=== PATIENT | female | born 1955 | race Caucasian/White ===

== ENCOUNTER 2016-07-16 23:31 | Observation (INO) ==
--- NOTE | 2016-07-16 23:55 | Emergency Department Note ---
Disposition Clinical Impression: Chest pain of unknown etiology Disposition: Admitted As Inpatient Condition: Fair Referrals: Unassigned,Provider [Non-Partnered Physician] - Forms: ED Satisfaction Letter Chest Pain HPI - General Chief Complaint: ED Chest Pain Stated Complaint: chest pains,left arm pain Time Seen by Provider: 07/16/16 23:40 Source: patient Limitations: no limitations Vital Signs Reviewed: Yes Nursing Notes Reviewed: Yes - History of Present Illness HPI Narrative: History of present illness: Patient is a 60-year-old female complains of chest pressure that started 3 days ago while at rest. No prior cardiac history for DE or arrhythmias. He had chest pressure symptoms 10 years ago with stress tests which was unremarkable. Patient states pressure deep within her chest 8 out of 10 constant. Nothing makes it better nothing makes it worse. Patient tried taking a laxative as she thought maybe it was constipation. Patient having normal bowel movements and no change in symptoms in her chest. Patient denies diabetes, hypertension, hyperlipidemia, history of clotting, Tobacco, alcohol or illicit drug use. Severity scale (1-10): 8 - Related Data Previous Rx's Medication Instructions Recorded Naproxen [Naprosyn] 500 mg PO BID #10 tablet 06/07/15 PredniSONE 20 mg PO DAILY #3 tablet 06/07/15 Allergies Allergy/AdvReac Type Severity Reaction Status Date / Time acetaminophen [From Percocet] Allergy Vomiting Verified 07/16/16 23:35 Oxycodone [From Percocet] Allergy Vomiting Verified 07/16/16 23:35 All systems ED: reviewed and negative except as stated. Constitutional: Denies: fever, chills, weakness Eyes: Denies: vision change ENT ED: Denies: throat pain, congestion, dysphagia Cardiovascular: Reports: chest pain. Denies: palpitations, syncope Respiratory: Denies: cough, dyspnea, wheezes, sputum production Gastrointestinal: Reports: diarrhea. Denies: abdominal pain, nausea, vomiting, constipation, hematemesis, melena, hematochezia Genitourinary: Denies: urgency, dysuria, frequency, hematuria Chest Pain PMH - Past Medical History Medical history: Reports: no medical history Surgical history: Reports: cholecystectomy Psychiatric history: Reports: no psych history - Social History Smoking Status: Never smoker Alcohol use: Reports: none Drug use: Reports: none Physical Exam - General Limitations: no limitations General appearance: alert - Head Head exam: atraumatic, normocephalic, normal inspection - Eye Eye exam: Present: normal appearance, PERRL, EOMI. Absent: scleral icterus, conjunctival injection, nystagmus - ENT ENT exam: normal exam, normal oropharynx, mucous membranes moist - Neck Neck exam: Present: normal inspection, full ROM, trachea midline. Absent: tenderness, meningismus, lymphadenopathy - Chest Chest inspection: Present: normal inspection, symmetric chest wall rise. Absent : tenderness - Respiratory Respiratory exam: Present: normal lung sounds bilaterally. Absent: respiratory distress, wheezes - Cardiovascular Cardiovascular exam: Present: regular rate, normal rhythm - Abdominal Exam Abdominal exam: Present: soft, Non-Tender - Back Exam Back exam: Present: normal inspection, full ROM. Absent: tenderness, CVA tenderness (R), CVA tenderness (L) - Neurological Exam Neurological exam: Present: alert, oriented X3, CN II-XII intact - Psychiatric Psychiatric exam: Present: normal affect, normal mood - Skin Skin exam: Present: warm, dry, intact, normal color Course - Reevaluation(s) Reevaluation #1: Assessment: ACS/DE, PE, pneumothorax, aortic dissection Plan: CBC, BMP, troponin, EKG, chest x-ray, aspirin Time: 23:38 Reevaluation #2: Patient is received aspirin, nitroglycerin 2, IV normal saline. Patient reports no change in pain or pressure Time: 01:15 Reevaluation #3: Patient received GI cocktail still no resolution to pain symptoms. Unsure was causing the pain right now/pressure but is concerning. Patient agrees to CTA of her chest. In administer IV fluids and 0.5 Dilaudid for pain Time: 01:49 Additional Reevaluation(s): Patient states that she still has chest pressure. Administer 1 mg of Dilaudid There is difficulty obtaining CTA of chest. Patient's IV line infiltrated and was unable to get the study. Patient is low risk for pulmonary embolism and has no shortness of breath or tachycardia, but we could not find any other reason for patient's chest pressure. Will continue with admission and advised later reattempt for CTA if necessary. - Consultations Consultation #1: Dr. Encarnacion has accepted for admission Time: 04:32 Vital Signs Temperature 98.3 F 07/16/16 23:32 Pulse Rate 95 07/16/16 23:32 Respiratory Rate 16 07/16/16 23:32 Blood Pressure 153/62 07/16/16 23:32 O2 Sat by Pulse Oximetry 95 07/16/16 23:32 Temperature 98.3 F 07/16/16 23:32 Pulse Rate 99 07/17/16 00:31 Respiratory Rate 18 07/17/16 00:31 Blood Pressure 147/77 07/17/16 00:31 O2 Sat by Pulse Oximetry 93 07/17/16 00:31 Oxygen Delivery Oxygen Delivery Room Air Chest Pain - Lab Data Lab results reviewed: Yes I reviewed the patient's lab results. Lab results narrative: Short CBC 07/17/16 Range/Units 00:02 WBC 10.9 (4.3-11.1) K/mcL Hgb 13.2 (11.5-15.4) g/dL Hct 40.0 (35.3-44.9) % Plt Count 327 (140-400) K/mcL Neutrophils # 7.1 (1.6-8.9) K/mcL BMP 07/17/16 Range/Units 00:02 Sodium 141 (136-145) mEq/L Potassium 3.7 (3.5-4.5) mEq/L Chloride 110 H (98-109) mEq/L Carbon Dioxide 22 (19-29) mEq/L BUN 22 H (7-20) mg/dL Creatinine 0.79 (0.57-1.11) mg/dL Glucose 93 (70-99) mg/dL Calcium 9.0 (8.6-10.8) mg/dL Cardiac Enzymes 07/17/16 Range/Units 00:02 Troponin I 0.00 (0-0.03) ng/mL Liver Function 07/17/16 Range/Units 00:02 Total Bilirubin 0.5 (0.2-1.2) mg/dL Direct Bilirubin 0.2 (0.0-0.5) mg/dL AST 22 (5-34) Units/L ALT 30 (0-55) Units/L Alkaline Phosphatase 82 (38-126) Units/L Albumin 4.1 (3.5-5.0) g/dL Result diagrams: 07/17/16 00:02 07/17/16 00:02 Lab Results 07/17/16 07/17/16 07/17/16 Range/Units 00:02 00:02 00:02 WBC 10.9 (4.3-11.1) K/mcL RBC 4.67 (3.82-4.97) M/mcL Hgb 13.2 (11.5-15.4) g/dL Hct 40.0 (35.3-44.9) % MCV 85.7 (83.0-100.0) fL MCH 28.3 (28.0-33.3) pg MCHC 33.0 (31.6-35.5) g/dL RDW 12.5 (11.5-14.5) % Plt Count 327 (140-400) K/mcL MPV 10.2 (9.4-12.4) fL Immature Gran % 0.5 (0-4) % Seg Neutrophils % 65.0 % Lymphocytes % 23.8 % Monocytes % 8.5 % Eosinophils % 1.8 % Basophils % 0.4 % Neutrophils # 7.1 (1.6-8.9) K/mcL Lymphocytes # 2.6 (0.6-4.6) K/mcL Monocytes # 0.9 (0.0-1.3) K/mcL Eosinophils # 0.2 (0.0-0.6) K/mcL Basophils # 0.0 (0.0-0.2) K/mcL Immature Plt Fraction 3.7 (1.1-6.1) % PT 11.6 (9.4-12.1) Seconds INR 1.1 APTT 29.1 (26.0-36.0) Seconds Sodium 141 (136-145) mEq/L Potassium 3.7 (3.5-4.5) mEq/L Chloride 110 H (98-109) mEq/L Carbon Dioxide 22 (19-29) mEq/L BUN 22 H (7-20) mg/dL Creatinine 0.79 (0.57-1.11) mg/dL Est GFR ( Amer) > 60 (> 60) Est GFR (Non-Af Amer) > 60 (> 60) BUN/Creatinine Ratio 28 H (6-26) Glucose 93 (70-99) mg/dL Calculated Osmolality 295 (280-300) Calcium 9.0 (8.6-10.8) mg/dL Total Bilirubin 0.5 (0.2-1.2) mg/dL Direct Bilirubin 0.2 (0.0-0.5) mg/dL Indirect Bilirubin 0.3 (0.0-1.2) mg/dL AST 22 (5-34) Units/L ALT 30 (0-55) Units/L Alkaline Phosphatase 82 (38-126) Units/L Troponin I (0-0.03) ng/mL Serum Total Protein 7.7 (6.0-8.3) g/dL Albumin 4.1 (3.5-5.0) g/dL Globulin 3.6 H (2.4-3.5) g/dL Albumin/Globulin Ratio 1.1 (1.1-2.2) Lipase < 4 L (8-78) Units/L 07/17/16 Range/Units 00:02 WBC (4.3-11.1) K/mcL RBC (3.82-4.97) M/mcL Hgb (11.5-15.4) g/dL Hct (35.3-44.9) % MCV (83.0-100.0) fL MCH (28.0-33.3) pg MCHC (31.6-35.5) g/dL RDW (11.5-14.5) % Plt Count (140-400) K/mcL MPV (9.4-12.4) fL Immature Gran % (0-4) % Seg Neutrophils % % Lymphocytes % % Monocytes % % Eosinophils % % Basophils % % Neutrophils # (1.6-8.9) K/mcL Lymphocytes # (0.6-4.6) K/mcL Monocytes # (0.0-1.3) K/mcL Eosinophils # (0.0-0.6) K/mcL Basophils # (0.0-0.2) K/mcL Immature Plt Fraction (1.1-6.1) % PT (9.4-12.1) Seconds INR APTT (26.0-36.0) Seconds Sodium (136-145) mEq/L Potassium (3.5-4.5) mEq/L Chloride (98-109) mEq/L Carbon Dioxide (19-29) mEq/L BUN (7-20) mg/dL Creatinine (0.57-1.11) mg/dL Est GFR ( Amer) (> 60) Est GFR (Non-Af Amer) (> 60) BUN/Creatinine Ratio (6-26) Glucose (70-99) mg/dL Calculated Osmolality (280-300) Calcium (8.6-10.8) mg/dL Total Bilirubin (0.2-1.2) mg/dL Direct Bilirubin (0.0-0.5) mg/dL Indirect Bilirubin (0.0-1.2) mg/dL AST (5-34) Units/L ALT (0-55) Units/L Alkaline Phosphatase (38-126) Units/L Troponin I 0.00 (0-0.03) ng/mL Serum Total Protein (6.0-8.3) g/dL Albumin (3.5-5.0) g/dL Globulin (2.4-3.5) g/dL Albumin/Globulin Ratio (1.1-2.2) Lipase (8-78) Units/L - Radiology Data Radiology results reviewed: Yes I reviewed the patient's radiology results. Chest X-Ray 07/17/16 00:01 IMPRESSION: No acute process. D/ / Arnaud Gomez MD / Arnaud Gomez MD Interpreting Provider: Arnaud Gomez MD - EKG Data EKG attestation: Yes I reviewed and interpreted this EKG. EKG results narrative: EKG taken 07/16/2016 at 2346 hrs. shows a normal sinus rhythm at a rate of 93 beats a minute with no acute ST elevations and depressions in any leads, no QRS widening or QT prolongation. No S1 QT T3 and compared to previous EKG taken which shows a sinus tachycardia at a rate of 108 bpm with no acute ST elevations and depressions in any leads Heart Score - Score History: Slightly Suspicious EKG: Normal Age: 45-65 Risk Factors: No risk factors known Troponin: Less than normal limit HEART Score Total: 1 Attestation Statement - Attestation Attestation: IKirk MD, personally performed a history and physical exam of the patient and discussed their management with the resident. I reviewed the resident's note and agree with the documented findings, medical decision making , and plan of care. 60-year-old female presents to the emergency room with a complaint of severe lower substernal pressure-like discomfort which started 3 days prior to arrival. The chest pressure as been constant for the past 3 days but acutely worse this evening. No radiation of the pain. Some nausea but no vomiting. No diaphoresis. Some mild shortness of breath. Patient has no prior history of any cardiac problems. No history of hypertension or hyperlipidemia. No diabetes. Nonsmoker. On examination patient is a well-developed well-nourished well-appearing female in no acute distress. She is alert and oriented 3. There is no cyanosis or diaphoresis. She does appear anxious. Chest is nontender to palpation. Breath sounds are clear and equal bilaterally. Heart regular rate and rhythm. Abdomen soft and nontender with normal bowel sounds. No pedal edema. No gross focal neurological deficits. EKG shows a normal sinus rhythm with a rate of 93, nonspecific ST and T-wave abnormality, moderate voltage criteria for LVH, no significant change from prior EKG dated 08/01/2006. Chest x-ray negative. Labs reviewed. Troponin normal.
[2016-07-17 00:08] LABS: Basophils % 0.4 %; Eosinophils # 0.2 K/mcL (0.0-0.6); Eosinophils % 1.8 %; Hemoglobin 13.2 g/dL (11.5-15.4); Immature Granulocytes % 0.5 % (0-4); Immature Platelets 3.7 % (1.1-6.1); Lymphocytes # 2.6 K/mcL (0.6-4.6); Lymphocytes % 23.8 %; Mean Corpuscular Hemoglobin 28.3 pg (28.0-33.3); Mean Corpuscular Volume 85.7 fL (83.0-100.0); Mean Platelet Volume 10.2 fL (9.4-12.4); Monocytes # 0.9 K/mcL (0.0-1.3); Monocytes % 8.5 %; Neutrophils # 7.1 K/mcL (1.6-8.9); Platelet Count 327 K/mcL (140-400); Red Blood Count 4.67 M/mcL (3.82-4.97); Red Cell Distribution Width 12.5 % (11.5-14.5)
[2016-07-17] MEDS ORDERED: Aspirin 81 MG TAB.CHEW PO ONE (00:12)
[2016-07-17 00:13] LABS: INR 1.1; Prothrombin Time 11.6 Seconds (9.4-12.1)
[2016-07-17 00:15] LABS: Activated Partial Thrombo Time 29.1 Seconds (26.0-36.0)
[2016-07-17 00:19] LABS: BUN/Creatinine Ratio 28 (6-26); Blood Urea Nitrogen 22 mg/dL (7-20); Carbon Dioxide 22 mEq/L (19-29); Chloride 110 mEq/L (98-109); Glucose 93 mg/dL (70-99); Osmolality,Calculated 295 (280-300); Potassium 3.7 mEq/L (3.5-4.5); Sodium 141 mEq/L (136-145); eGFR For African Americans > 60 (> 60); eGFR For Non-African Americans > 60 (> 60)
[2016-07-17] MEDS: Nitroglycerin 0.4 MG TAB.SUBL SL PRN ×2 (00:19→00:33)
[2016-07-17 00:51] LABS: Alanine Aminotransferase 30 Units/L (0-55); Albumin 4.1 g/dL (3.5-5.0); Albumin/Globulin Ratio 1.1 (1.1-2.2); Alkaline Phosphatase 82 Units/L (38-126); Aspartate Amino Transferase 22 Units/L (5-34); Bilirubin,Direct 0.2 mg/dL (0.0-0.5); Bilirubin,Indirect 0.3 mg/dL (0.0-1.2); Bilirubin,Total 0.5 mg/dL (0.2-1.2); Globulin 3.6 g/dL (2.4-3.5); Total Protein 7.7 g/dL (6.0-8.3)
[2016-07-17 00:52] LABS: Lipase < 4 Units/L (8-78)
[2016-07-17] MEDS ORDERED: 0.9 % Sodium Chloride 1,000 ML IVC ONE (00:55)
[2016-07-17] MEDS ORDERED: GI Cocktail 40 ML EACH PO ONE (00:55)
[2016-07-17] MEDS ORDERED: *HR* HYDROmorphone 2 MG/ML SYRINGE IV ONE ×2 (01:50→04:12)
[2016-07-17] MEDS ORDERED: Ondansetron 4 MG/2 ML VIAL IVP ONE (01:50)
[2016-07-17] MEDS ORDERED: Ondansetron 4 MG/2 ML VIAL IV ONE (04:13)
[2016-07-17] MEDS ORDERED: 0.9 % Sodium Chloride 1,000 ML IVC SCH (04:15)
[2016-07-17] MEDS ORDERED: Naloxone 0.4 MG/ML INJ IVP PRN (05:11)
--- NOTE | 2016-07-17 05:19 | Internal Med History&Physical ---
Date of Encounter: 07/17/16 Time of Encounter: 05:03 Assessment and Plan (1) Chest pain Current visit: Yes Status: Acute patient with no personal history of CAD and negligible risk factor for CAD comes in with chest pain that is concerning for ACS with an atypical presentation, her EKG and troponin were unremarkable for ischemia we will admit her for ACS r/o due to concern from her presentation, we will check A1c and lipid profile for risk stratification we will continue to cycle troponin, telemonitor NPO for now, stress test in AM Qualifiers: Chest pain type: precordial pain Qualified Code(s): R07.2 - Precordial pain (2) Obesity (BMI 30.0-34.9) Current visit: Yes Status: Chronic she will benefit from counseling Internal Medicine - H&P: HPI Chief complaint: Chest pain Admitted From: Emergency Dept Plans for Post Hospital Care: Home History of present illness: Ms. Cooper is a 60 year old female with no prior significant medical history comes in with chest pain. She was in her usual sate of health until when she began to have chest pain that was described as dull, aching heaviness across her chest. Initially it radiated to her back but subsequently it had no radiation. Her pain has been constant since inception but has had periods of improvement to 2/10 and peaks of 8/10. The pain has been associated with nausea but no vomiting, she also denies any associated palpitations, diaphoresis, shortness of breath or lightheadedness. She was taking antacids but they were not helping, she denies any aggravating factors. She came in today because the pain is getting worse and she cannot find any relief. This is her first such episode, she however had a stress test years ago that was unremarkable. Past Med Surg Social Fam HX - Past Medical History Medical history: no medical history Psychiatric history: no psych history - Past Surgical History Surgical History: breast surgery, cholecystectomy - Social History Smoking Status: Never smoker Smokeless Tobacco Status: No Alcohol use: occasionally Drug use: none Current living situation: Home - Independent, With Family Activity Level: Independent ambulation Additional social history: she is with 3 children - Family History Mother Cause of : CA Hx Family Cardiac Disorders: No Hx Family Respiratory Disorders: No Hx Family Cancer: Yes (Colon) Hx Family GI Disorders: No Hx Family Genitourinary Disorders: No Hx Family Endocrine Disorder: No Hx Family Musculoskeletal Disorders: No Hx Family Neuromuscular Disorders: No Hx Family Neurologic Disorders: No Hx Family HEENT Disorders: No Hx Family Autoimmune Disorders: No Hx Family Reproductive Disorders: No Hx Family Psychosocial Disorders: No Hx Family Medical Disorders: No - Additional Family History Additional family history: father had DM and heart problems, mother when pt was 13 years old from colon cancer Internal Medicine - H&P: Meds Naproxen [Naprosyn] 500 mg PO BID #10 tablet 06/07/15 [Rx] PredniSONE 20 mg PO DAILY #3 tablet 06/07/15 [Rx] Allergies acetaminophen [From Percocet] Allergy (Verified 07/16/16 23:35) Vomiting Oxycodone [From Percocet] Allergy (Verified 07/16/16 23:35) Vomiting All Systems PM: A 10-system review of systems was performed and is negative for pertinent findings except as documented above in the HPI. - Constitutional Constitutional: no chills, no fever(s), no night sweats - EENT Eyes: no change in vision, no discharge, no pain, no photophobia Ears: no ear discharge, no ear pain, no tinnitus Nose, mouth and throat: no dysphagia, no nasal discharge, no neck pain, no sore throat - Cardiovascular Cardiovascular ROS IM: chest pain, no diaphoresis, no dyspnea, no lightheadedness, no palpitations, no syncope - Respiratory Respiratory: no cough, no dyspnea, no wheezing, no excessive phlegm production - Gastrointestinal Gastrointestinal: no abdominal pain, no diarrhea, no hematemesis, no hematochezia, no melena, no nausea, no vomiting - Constitutional Vitals: Temp Pulse Resp BP Pulse Ox 97.7 F 75 16 104/66 90 07/17/16 04:50 07/17/16 04:50 07/17/16 04:50 07/17/16 04:50 07/17/16 04:50 - General General appearance: Adult female, lying in bed with no sign of distress, slightly drowsy from medications but able to provide her own history - Head Head exam: atraumatic, normocephalic, normal inspection - Eye Eye exam: Present: normal appearance, PERRL, EOMI. Absent: scleral icterus, conjunctival injection, nystagmus - ENT ENT exam: normal exam, normal oropharynx, mucous membranes moist - Neck Neck exam: Present: normal inspection, full ROM, trachea midline. Absent: tenderness, meningismus, lymphadenopathy - Respiratory Respiratory exam: Present: normal lung sounds bilaterally. Absent: respiratory distress, wheezes - Cardiovascular Cardiovascular exam: regular rate, normal rhythm, no murmur, non tender chest wall, no pedal edema - Abdominal Exam Abdominal exam: Present: soft, Non-Tender, no masses palpable, normal bowel sounds, - Neurological Exam Neurological exam: Present: alert, oriented X3, CN II-XII intact, grossly non focal motor and sensory exam - Psychiatric Psychiatric exam: Present: normal affect, normal mood - Skin Skin exam: Present: warm, dry, intact, normal color Internal Med - H&P Results - Labs CBC & Chem 7: 07/17/16 00:02 07/17/16 00:02 - EKG Data -: EKG Interpreted by Myself EKG shows normal: sinus rhythm - EKG Data Prior EKG available for review: yes When compared to previous EKG: there is no significant change - Diagnostic Studies Chest x-ray Status: image reviewed by me
[2016-07-17 06:28] LABS: Hemoglobin A1C 5.2 %
[2016-07-17 06:31] LABS: Chol/HDL Ratio 3.9 (0-4.9)
[2016-07-17] MEDS: *HR* Heparin 5,000 UNIT/ML VIAL SQ SCH ×2 (06:39→13:24)
[2016-07-17] MEDS ORDERED: Regadenoson 0.4 MG/5 ML SYRINGE IVP ONE (07:05)
[2016-07-17 11:21] VITALS: BP 110/69
--- NOTE | 2016-07-17 11:35 | Nuclear Medicine Stress Report ---
Regadenoson Nuclear Stress Name: Madisyn Cooper Date of Study: 07/17/2016 Date: 1955 Ht: 66.0 in Medical Record#: [id number] Age: 60 Wt: 195.0 lb Gender: Female Order #: [id number] Location: [facility] Room: [facility] Supervising Provider: Rafi Jama CNP Reading Physician: Richard Hart MD, [facility] Ordering Physician: Zahra Martin CNP Primary Care Physician: None Stress Technologist: Hilario Perez RRT, CCT [employer] Grinder Feeder: Delfino Johnson Indications: Chest Pain Impression: Perfusion imaging was negative for ischemia or infarct; baseline inferior perfusion defect improved with stress which is consistent with artifact Pharmacologic ECG was non diagnostic for ischemia - baseline inferolateral T wave inversion more pronounced during pharmacological stress is nonspecific No arrhythmias noted with stress. Normal hemodynamic response. Gated EF = >70%. There is no evidence of TID. Clinical correlation is advised; No high risk stress findings identified on this study Stress Test Summary: Stress Test Type: Pharmacologic Regadenoson 0.4mg/5ml given IV Baseline Information: Initial Heart Rate: 72 Blood Pressure: 104/80 Stress Information: Stress Time: 4 min 00 sec Test Terminated Due to (primary): Completed Protocol Maximum Blood Pressure: 110/80 Maximum Heart Rate: 105 Percent Maximum Heart Rate Achieved: 65 Double Product: [id number] METS Reached: 1 Symptoms: Shortness of breath, Nausea Nuclear Summary: SPECT myocardial perfusion imaging using Tc99m Sestamibi given intravenously was performed at rest and following cardiac stress testing. The resting images were obtained following initial dose of 10.6 mCi. Following stress an additional dose of 34.5 mCi was given at peak exercise or 30 seconds post regadenoson infusion. Medication Given: Time Medication Dose Units Route Findings: Stress Note * Resting ECG demonstrated normal sinus rhythm with inferolateral T wave inversions that worsen with pharmacologic stress * No baseline arrhythmias were noted. * Pharmacologic stress ECG is non diagnostic for ischemia due to failure to reach target heartrate. * No arrhythmias were noted during stress. Gated EF > 70% * Gated EF > 70%. Study Quality * Study quality is average. Hemodynamic responses * Normal hemodynamic responses to pharmacologic stress. Left Ventricle * The left ventricle is not dilated. NORMALS * Normal wall motion. Inferior Perfusion Rest * The inferior segment shows a severe reduction in perfusion. Inferior Perfusion Stress * The inferior segment shows a moderate reduction in perfusion. Updated by Richard Hart MD, [facility] on 07/17/2016 11:26:08 AM electronically signed on 07/17/2016 11:31:00 AM with status of Final
[2016-07-17] MEDS ORDERED: Acetaminophen 325 MG TABLET PO PRN (12:19)
--- NOTE | 2016-07-17 13:29 | Discharge Summary ---
Date of Encounter: 07/17/16 Time of Encounter: 13:15 - Discharge Diagnosis (1) Chest pain Priority: Primary Status: Acute Comments: Patient presented to the emergency department yesterday reporting sena rib/upper abd pressure that started 3 days ago while at rest. She rates it an 8 out of 10 and constant. There is nothing that makes it better and nothing makes it worse. After stress test today pain was a 6 out of 10. Light enter the room she is no longer having chest pain during the assessment. She says that she feels better and is ready to go home. She denies shortness of breath nausea or vomiting. She denies radiation of the pain at all. Her troponins were negative 2. Stress test this morning showed imaging was negative for ischemia or infarct. No arrhythmias with the stress test and normal hemodynamic response. Gated ejection fraction was greater than 70%, no high risk stress findings identified. Pt will follow up with cardiology outpatient. She does not have a PCP. There was concern for PE, CTA shows no PE, scarring/atelectasis without focal consolidations to suggest infection, emphysema, and cholecystectomy. She states that she has constant GERD symptoms and takes "[employer] Ranitidine". I will give her a prescription for Omeprazole and discussed trying diet changes for 1 week at least. Qualifiers: Chest pain type: precordial pain Qualified Code(s): R07.2 - Precordial pain (2) Obesity (BMI 30.0-34.9) Priority: Secondary Status: Chronic Comments: Chronic. Pt and I discussed lifestyle changes, not only for weight, but for GERD symptom relief. - Discharge Medications Prescriptions: Omeprazole 20 mg PO DAILY #30 tablet. Home Medications: Naproxen Sodium [Aleve] 220 mg PO Q6H PRN 07/17/16 [History] Omeprazole 20 mg PO DAILY #30 tablet. 07/17/16 [Rx] Allergies/Adverse Reactions: Allergies acetaminophen [From Percocet] Allergy (Verified 07/17/16 11:23) Vomiting Oxycodone [From Percocet] Allergy (Verified 07/17/16 11:23) Vomiting Procedures/tests Complete & Pending: Procedures Performed prior 72 hours Category Date Time Status NM roxana perf SPECT multi [NM] Routine Exams 07/17/16 05:11 Taken SP pharm nuclear stress Routine Y 04/15/17 05:11 Completed Date of admission: 07/17/16 04:21 Primary care physician: PCP NO Consults: 07/17/16 05:32 Consult to Nutrition [CONS] Routine Comment: Consulting Provider: NUTRITION Reason for Dietary Consult: Diet Education Discharging clinician: Zahra Martin Anticipated date of discharge: 07/17/16 - Patient Status Disposition: Home, Self-Care Condition: Good Functional capacity at discharge: independent ambulation Overall status at discharge: patient is back to baseline - Discharge Instructions Follow Up With: NO,PCP [Primary Care Provider] - Additional Instructions: Please establish care with a primary care physician this coming week. Start Omeprazole in the morning. Return to the ED as needed for any other problems or concerns, or for worsening condition. - Diet and Activity Activity: increase activity as tolerated Diet: low fat, low cholesterol Hospital course: Ms. Cooper is a 60 year old female with no significant medical history other than maybe GERD. She presented to the emergency room yesterday for several day history of bilateral anterior rib pain and upper abdominal pain. There was some concern for PE while she was seen in emergency department her CTA was negative for PE however did show emphysema. Patient is not a smoker, has never been a smoker, but she does live with smokers. I told her if she ever begins to have problems to the oldest CAT scan. She is completely asymptomatic. Her lungs are clear and she denies a cough. She reports constant GERD symptoms and states that she takes Zantac that she purchases at the [employer] store. I asked her if she would be interested in trying omeprazole instead. She was agreeable and I sent her home with prescription for omeprazole 20 mg daily. She denies chest pain at this time, however she does say that she has just some minor constant discomfort that has been there for about a year. Is slightly reproducible when I press on upper abdomen on both sides. I believe that her chest pain is more GI than cardiac. Mrs. Cooper had a nuclear stress test today that showed a gated EF of greater than 70%, negative for ischemia or infarct, no arrhythmias with stress, normal hemodynamic response, and no high-risk stress test findings identified in this study. I spoke with cardiology DEMAND GENERATOR MANAGER who will speak with physician if patient needs to follow-up outpatient. - Time Spent with Patient Total time spent providing and/or coordinating discharge services: - Constitutional Vitals: Temp Pulse Resp BP Pulse Ox 97.7 F 64 17 110/69 95 07/17/16 11:18 07/17/16 11:18 07/17/16 11:18 07/17/16 11:18 07/17/16 11:18 General appearance: Present: A&O X 3, pleasant, no acute distress, answers questions appropriately - Head Head exam: Present: normal inspection - Eye Eye exam: Present: normal appearance - ENT ENT exam: Present: mucous membranes moist, normal exam, normal external ear exam - Neck Neck exam general surgery: Present: normal inspection. Absent: lymphadenopathy , tenderness - Respiratory Respiratory exam: Present: CTAB. Absent: respiratory distress, rhonchi, wheezes - Cardiovascular Cardiovascular exam: Present: RRR, +S1, +S2. Absent: diastolic murmur, systolic murmur - GI/Abdominal GI/Abdominal exam: Present: normal bowel sounds, soft. Absent: guarding, hepatomegaly, splenomegaly, tenderness - Extremities Exam Extremities exam: Present: normal capillary refill, warm, radial pulses palpable and symetrical. Absent: pedal edema, tenderness
--- NOTE | 2016-07-19 09:02 | Electrocardiograph Report ---
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
--- NOTE | 2016-07-19 20:29 | Electrocardiograph Report ---
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
== END 2016-07-17 14:25 | disposition home or self-care (01) ==
LOC: EMEROO 23:31 → 3BNU 23:31
PROVIDERS: ADMIT Internal Medicine; ATTEND Registered Nurse

== ENCOUNTER 2017-07-01 18:53 | Observation (INO) ==
--- NOTE | 2017-07-01 19:01 | Emergency Department Note ---
Disposition Clinical Impression: Hypoxia URI (upper respiratory infection) Qualifiers: URI type: unspecified viral URI Qualified Code(s): J06.9 - Acute upper respiratory infection, unspecified Disposition: Admitted As Inpatient Condition: Good Referrals: NONE,PCP [Primary Care Provider] - Forms: ED Satisfaction Letter Time of Disposition: 20:38 SOB HPI - General Chief Complaint: ED Shortness of Breath/Dyspnea Stated Complaint: REINALDO x2days Time Seen by Provider: 07/01/17 19:01 Source: patient Mode of arrival: ambulatory Limitations: no limitations Nursing Notes Reviewed: Yes Vital Signs Reviewed: Yes - History of Present Illness Patient is a 61-year-old female with no past medical history. She presents today due to shortness of breath and URI symptoms. She states that over the past 2 days, she started getting cold-like symptoms with runny nose and dry cough. However, over the past 24 hours, she has had worsening shortness of breath. She states that overnight, she felt as though she could not breathe at all. Her is present states they gave her a dose of his albuterol inhaler and that she had improvement of her symptoms. The patient herself denies any history of COPD or asthma, has never had to use albuterol in the past. Denies any history of CHF. Denies any chest pain, known fevers, nausea, vomiting, abdominal pain. - Related Data Home Medications Medication Instructions Recorded Confirmed Naproxen Sodium [Aleve] 220 mg PO Q6H PRN 07/17/16 07/17/16 Previous Rx's Medication Instructions Recorded Omeprazole 20 mg PO DAILY #30 tablet. 07/17/16 Allergies Allergy/AdvReac Type Severity Reaction Status Date / Time acetaminophen [From Percocet] Allergy Vomiting Verified 07/17/16 11:23 Oxycodone [From Percocet] Allergy Vomiting Verified 07/17/16 11:23 All systems ED: reviewed and negative except as stated. Constitutional: Denies: fever Cardiovascular: Denies: chest pain, palpitations Respiratory: Reports: cough, dyspnea, wheezes. Denies: sputum production Gastrointestinal: Denies: abdominal pain, nausea, vomiting, diarrhea Genitourinary: Denies: urgency Neurological: Denies: headache, weakness, numbness, paresthesias Past Medical History - Past Medical History Attestation: Yes The following information was validated with the patient. Source: patient Medical history: Reports: no medical history Surgical history: Reports: cholecystectomy Psychiatric history: Reports: no psych history - Social History Smoking Status: Never smoker Smokeless Tobacco Status: No Alcohol use: Reports: none Drug use: Reports: none Physical Exam - General Limitations: no limitations - Head Head exam: atraumatic, normocephalic, normal inspection - Eye Eye exam: Present: normal appearance, PERRL, EOMI - ENT ENT exam: normal exam, normal oropharynx, mucous membranes moist - Neck Neck exam: Present: normal inspection, full ROM, trachea midline - Chest Chest inspection: Present: normal inspection, symmetric chest wall rise - Respiratory Respiratory exam: Present: other (Decreased aeration and wheezes throughout all lung car[place].) - Cardiovascular Cardiovascular exam: Present: normal rhythm, tachycardia, normal heart sounds - Abdominal Exam Abdominal exam: Present: soft, Non-Tender. Absent: tenderness, distention, guarding, rebound, rigidity - Extremities Exam Extremities exam: Present: normal inspection, full ROM. Absent: tenderness, pedal edema - Neurological Exam Neurological exam: Present: alert, oriented X3 - Psychiatric Psychiatric exam: Present: normal affect, normal mood - Skin Skin exam: Present: warm, dry, intact, normal color Course Course Narrative: Patient was febrile and tachycardic on presentation. Otherwise, satting within normal limits on room air. Physical exam shows tachycardia with a normal rhythm , lungs exam shows decreased aeration throughout all and wheezes throughout. Abdomen soft and nontender. We will give the patient DuoNeb 3, Solu-Medrol, perform chest x-ray and basic bloodwork. If the patient has improvement is still saturating in the upper 90s on room air, can possibly send the patient home. 20:38 no elevation white blood cell count. Chest x-ray negative for any acute cardio pulmonary process. Patient had 2 nebs and Solu-Medrol. However, on recheck oxygen saturation was around 90-91% on room air. Patient was ambulated around the department and dropped to 86%. She has no previous diagnosis of asthma or COPD. She has no oxygen at home. We will admit the patient for further care due to hypoxia and viral respiratory illness. Chest X-Ray 07/01/17 19:02 IMPRESSION: No acute process. D/ / Osvaldo Ortiz MD / Osvaldo Ortiz MD Interpreting Provider: Osvaldo Ortiz MD Vital Signs Temperature 101.3 F H 07/01/17 18:55 Pulse Rate 110 07/01/17 18:55 Respiratory Rate 18 07/01/17 18:55 Blood Pressure 149/85 07/01/17 18:55 O2 Sat by Pulse Oximetry 95 07/01/17 18:55 Temperature 100.2 F H 07/01/17 20:28 Pulse Rate 122 07/01/17 20:24 Respiratory Rate 17 07/01/17 20:24 Blood Pressure 127/82 07/01/17 20:24 O2 Sat by Pulse Oximetry 93 07/01/17 20:28 Oxygen Delivery Oxygen Delivery Nasal Cannula Shortness of Breath/Dyspnea - MDM Narrative Medical decision making narrative: no elevation white blood cell count. Chest x-ray negative for any acute cardio pulmonary process. Patient had 2 nebs and Solu-Medrol. However, on recheck oxygen saturation was around 90-91% on room air. Patient was ambulated around the department and dropped to 86%. She has no previous diagnosis of asthma or COPD. She has no oxygen at home. We will admit the patient for further care due to hypoxia and viral respiratory illness. - Medical Records Medical records reviewed: Yes I reviewed the patient's medical records. - Lab Data Lab results reviewed: Yes I reviewed the patient's lab results. Result diagrams: 07/01/17 19:02 07/01/17 19:02 Lab Results 07/01/17 07/01/17 Range/Units 19:02 19:02 WBC 7.6 (4.3-11.1) K/mcL RBC 4.46 (3.82-4.97) M/mcL Hgb 12.7 (11.5-15.4) g/dL Hct 38.5 (35.3-44.9) % MCV 86.3 (83.0-100.0) fL MCH 28.5 (28.0-33.3) pg MCHC 33.0 (31.6-35.5) g/dL RDW 12.9 (11.5-14.5) % Plt Count 243 (140-400) K/mcL MPV 10.5 (9.4-12.4) fL Immature Gran % 0.7 (0-4) % Seg Neutrophils % 54.0 % Lymphocytes % 27.9 % Monocytes % 15.6 % Eosinophils % 1.4 % Basophils % 0.4 % Neutrophils # 4.1 (1.6-8.9) K/mcL Lymphocytes # 2.1 (0.6-4.6) K/mcL Monocytes # 1.2 (0.0-1.3) K/mcL Eosinophils # 0.1 (0.0-0.6) K/mcL Basophils # 0.0 (0.0-0.2) K/mcL Sodium 135 L (136-145) mEq/L Potassium 4.0 (3.5-5.1) mEq/L Chloride 107 (98-107) mEq/L Carbon Dioxide 20 L (23-29) mEq/L BUN 17 (8-23) mg/dL Creatinine 0.80 (0.60-1.20) mg/dL Est GFR ( Amer) > 60 (> 60) Est GFR (Non-Af Amer) > 60 (> 60) BUN/Creatinine Ratio 21 (6-26) Glucose 94 (70-105) mg/dL Calculated Osmolality 281 (280-300) Calcium 9.0 (8.6-10.3) mg/dL - Radiology Data Radiology results reviewed: Yes I reviewed the patient's radiology results. Chest X-Ray 07/01/17 19:02 IMPRESSION: No acute process. D/ / Osvaldo Ortiz MD / Osvaldo Ortiz MD Interpreting Provider: Osvaldo Ortiz MD S.B.AHughRHugh - S.B.A.RHugh Situation: Demographics, MOA Background: Presenting Complaint, Relevant PMH, Meds, & Allergies Assessment: Vital Signs, Course and respsone to treatment, Exam Concerns, Patient/Family Expectation, Pertinant Lab Results, Outstanding Labs Recommendation: Barrier(s) to disposition, Recommendation based on pending studies, treatments, or consults S.B.A.David Report Given to: Dr. An Ramos Repor Time: 21:22
[2017-07-01] MEDS ORDERED: Ipratropium/Albuterol Neb 3 ML IH ONE (19:06)
[2017-07-01] MEDS ORDERED: methylPREDNISolone 125 MG/2 ML VIAL IVP ONE (19:06)
[2017-07-01] MEDS ORDERED: Ibuprofen 600 MG TABLET PO ONE (19:17)
--- NOTE | 2017-07-01 19:33 | Emergency Department Note ---
Disposition Clinical Impression: URI (upper respiratory infection) Qualifiers: URI type: unspecified viral URI Qualified Code(s): J06.9 - Acute upper respiratory infection, unspecified Disposition: Still a Patient Referrals: NONE,PCP [Primary Care Provider] - Forms: ED Satisfaction Letter Time of Disposition: 19:33 General Adult HPI - General Chief complaint: ED Shortness of Breath/Dyspnea Stated complaint: REINALDO x2days Time Seen by Provider: 07/01/17 19:01 Source: patient Mode of arrival: ambulatory Limitations: no limitations Nursing Notes Reviewed: Yes Vital Signs Reviewed: Yes - History of Present Illness Pain Scale: 0 - Related Data Home Medications Medication Instructions Recorded Confirmed Naproxen Sodium [Aleve] 220 mg PO Q6H PRN 07/17/16 07/17/16 Previous Rx's Medication Instructions Recorded Omeprazole 20 mg PO DAILY #30 tablet. 07/17/16 Allergies Allergy/AdvReac Type Severity Reaction Status Date / Time acetaminophen [From Percocet] Allergy Vomiting Verified 07/17/16 11:23 Oxycodone [From Percocet] Allergy Vomiting Verified 07/17/16 11:23 Constitutional: Denies: fever Cardiovascular: Denies: chest pain, palpitations Respiratory: Reports: cough, dyspnea, wheezes. Denies: sputum production Gastrointestinal: Denies: abdominal pain, nausea, vomiting, diarrhea Genitourinary: Denies: urgency Neurological: Denies: headache, weakness, numbness, paresthesias Past Medical History - Past Medical History Medical history: Reports: no medical history Surgical history: Reports: cholecystectomy Psychiatric history: Reports: no psych history - Social History Smoking Status: Never smoker Smokeless Tobacco Status: No Alcohol use: Reports: none Drug use: Reports: none Physical Exam - General Limitations: no limitations Course - Reevaluation(s) Reevaluation #1: Attestation note I did independently examine and verified the physical examination findings evaluation workup and disposition of this patient. We had independent face-to- face examination and discussion. The patient was seen with the emergency medicine resident Dr. Panchito Bailey I examined this patient and my medical decision-making was reviewed with the Resident Physician/DBA/PA. I agree with the documented findings, disposition and treatment plan as described except to the extent set forth below. Briefly: -year-old female with significant past medical history 2 days of URI type symptoms have some mild wheezing no sputum shortness breath or chest pain afebrile stable vital signs. Patient DuoNeb treatment chest x-ray. Disposition pending with anticipated disposition discharge home. Of note patient did not get her flu shot this year. Time: 19:31 Vital Signs Temperature 101.3 F H 07/01/17 18:55 Pulse Rate 110 07/01/17 18:55 Respiratory Rate 18 07/01/17 18:55 Blood Pressure 149/85 07/01/17 18:55 O2 Sat by Pulse Oximetry 95 07/01/17 18:55 Temperature 101.3 F H 07/01/17 18:55 Pulse Rate 110 07/01/17 18:55 Respiratory Rate 20 07/01/17 19:15 Blood Pressure 149/85 07/01/17 18:55 O2 Sat by Pulse Oximetry 95 07/01/17 19:15 Oxygen Delivery Oxygen Delivery Room Air
[2017-07-01 19:52] LABS: Basophils % 0.4 %; Eosinophils # 0.1 K/mcL (0.0-0.6); Eosinophils % 1.4 %; Hematocrit 38.5 % (35.3-44.9); Hemoglobin 12.7 g/dL (11.5-15.4); Immature Granulocytes % 0.7 % (0-4); Lymphocytes # 2.1 K/mcL (0.6-4.6); Lymphocytes % 27.9 %; Mean Corpuscular Hemoglobin 28.5 pg (28.0-33.3); Mean Corpuscular Volume 86.3 fL (83.0-100.0); Mean Platelet Volume 10.5 fL (9.4-12.4); Monocytes # 1.2 K/mcL (0.0-1.3); Monocytes % 15.6 %; Neutrophils # 4.1 K/mcL (1.6-8.9); Platelet Count 243 K/mcL (140-400); Red Blood Count 4.46 M/mcL (3.82-4.97); Red Cell Distribution Width 12.9 % (11.5-14.5)
[2017-07-01 20:38] LABS: BUN/Creatinine Ratio 21 (6-26); Blood Urea Nitrogen 17 mg/dL (8-23); Carbon Dioxide 20 mEq/L (23-29); Chloride 107 mEq/L (98-107); Glucose 94 mg/dL (70-105); Osmolality,Calculated 281 (280-300); Sodium 135 mEq/L (136-145); eGFR For African Americans > 60 (> 60); eGFR For Non-African Americans > 60 (> 60)
[2017-07-01] MEDS ORDERED: Ibuprofen 400 MG TABLET PO PRN (22:39)
[2017-07-01] MEDS ORDERED: Naloxone 0.4 MG/ML INJ IVP PRN (22:39)
[2017-07-01] MEDS ORDERED: Ipratropium/Albuterol Neb 3 ML IH PRN (22:42)
--- NOTE | 2017-07-01 23:17 | Internal Med History&Physical ---
Date of Encounter: 07/01/17 Time of Encounter: 21:00 Assessment and Plan (1) Acute bronchitis Current visit: Yes Status: Acute Patient has flu like symptoms with nonproductive cough and wheezing. Patient has no history of asthma. Patient's symptoms respond to bronchodilator and steroid treatment. - Place patient on continuous pulse oximetry monitoring - Placing patient on IV azithromycin, steroids, and bronchodilator - Oxygen supportive treatment - Flu test - Respiratory viral panel test. Qualifiers: Bronchitis organism: unspecified organism Qualified Code(s): J20.9 - Acute bronchitis, unspecified (2) Hypoxia Current visit: Yes Status: Acute Due to acute bronchitis. Continue supportive treatment and closely monitor patient (3) URI (upper respiratory infection) Current visit: Yes Status: Acute Management as above Qualifiers: URI type: unspecified viral URI Qualified Code(s): J06.9 - Acute upper respiratory infection, unspecified Internal Medicine - H&P: HPI Chief complaint: Shortness of breath Admitted From: Home Plans for Post Hospital Care: Home History of present illness: Ms. Cooper is a 61 year old female without significant past medical history present to ER for shortness of breath for 1-2 days. Patient has low grade fever , nonproductive cough, and increased shortness of breath. Patient denies chest pain, nausea, or vomiting. Patient has no history of COPD on asthma. In the emergency room, patient was found wheezing bilaterally. Patient also has desaturation and exertional intolerance. Patient was treated with steroids and nebulizer and her symptoms has improved significantly. Patient still needs oxygen to maintain saturation. She was admitted for further management. Past Med Surg Social Fam HX - Past Medical History Medical history: no medical history Psychiatric history: no psych history - Past Surgical History Surgical History: cholecystectomy - Social History Smoking Status: Never smoker Smokeless Tobacco Status: No Alcohol use: none Drug use: none - Family History Mother Hx Family Cardiac Disorders: No Hx Family Respiratory Disorders: No Hx Family Cancer: Yes (Colon) Hx Family GI Disorders: No Hx Family Endocrine Disorder: No Hx Family Neuromuscular Disorders: No Hx Family Neurologic Disorders: No Hx Family HEENT Disorders: No Hx Family Autoimmune Disorders: No Internal Medicine - H&P: Meds 3 Allergy/AdvReac Type Severity Reaction Status Date / Time acetaminophen [From Percocet] Allergy Vomiting Verified 07/17/16 11:23 Oxycodone [From Percocet] Allergy Vomiting Verified 07/17/16 11:23 All Systems PM: A 10-system review of systems was performed and is negative for pertinent findings except as documented above in the HPI. - Constitutional Vitals: Temp Pulse Resp BP Pulse Ox 100.2 F H 87 20 138/74 97 07/01/17 20:28 07/01/17 20:56 07/01/17 22:59 07/01/17 22:59 07/01/17 20:56 General appearance: Present: A&O X 3, no acute distress, answers questions appropriately - Head Head exam: Present: atraumatic, normocephalic - Eye Eye exam: Present: PERRL, conjuntiva pink, sclera anicteric Pupils: Present: PERRL - Neck Neck exam general surgery: Present: supple, trachea midline. Absent: lymphadenopathy - Respiratory Respiratory exam: Present: CTAB. Absent: accessory muscle use, rales, rhonchi, wheezes - Cardiovascular Cardiovascular exam: Present: RRR, +S1, +S2. Absent: diastolic murmur, gallop, rubs, systolic murmur - GI/Abdominal GI/Abdominal exam: Present: normal bowel sounds, soft, no peritoneal signs. Absent: distended, tenderness - Extremities Exam Extremities exam: Present: warm, radial pulses palpable and symmetrical. Absent : calf tenderness, cyanotic, pedal edema - Neurological Exam Neurological exam: Present: CN II-XII intact, oriented X3, no focal deficits. Absent: pronater drift, facial droop, speech deficit - Skin Skin exam: Present: dry, intact Internal Med - H&P Results - Labs CBC & Chem 7: 07/01/17 19:02 07/01/17 19:02
[2017-07-01] MEDS: Azithromycin 500 MG in D5% in Water 250 ML IVPB SCH (23:57)
[2017-07-02] MEDS: Ipratropium/Albuterol Neb 3 ML IH SCH ×4 (03:56→21:14)
[2017-07-02 05:07] LABS: Basophils % 0.2 %; Hematocrit 37.3 % (35.3-44.9); Hemoglobin 12.2 g/dL (11.5-15.4); Immature Granulocytes % 0.7 % (0-4); Lymphocytes # 0.5 K/mcL (0.6-4.6); Mean Corpuscular HGB Conc 32.7 g/dL (31.6-35.5); Mean Corpuscular Hemoglobin 28.3 pg (28.0-33.3); Mean Corpuscular Volume 86.5 fL (83.0-100.0); Mean Platelet Volume 10.3 fL (9.4-12.4); Monocytes # 0.1 K/mcL (0.0-1.3); Monocytes % 1.9 %; Neutrophils # 5.2 K/mcL (1.6-8.9); Platelet Count 258 K/mcL (140-400); Red Blood Count 4.31 M/mcL (3.82-4.97); Red Cell Distribution Width 12.8 % (11.5-14.5); Segmented Neutrophils % 89.2 %
[2017-07-02 05:14] LABS: BUN/Creatinine Ratio 20 (6-26); Blood Urea Nitrogen 18 mg/dL (8-23); Calcium 9.2 mg/dL (8.6-10.3); Carbon Dioxide 25 mEq/L (23-29); Chloride 107 mEq/L (98-107); Glucose 255 mg/dL (70-105); Magnesium 2.3 mg/dL (1.6-2.6); Osmolality,Calculated 299 (280-300); Potassium 4.3 mEq/L (3.5-5.1); Sodium 139 mEq/L (136-145); eGFR For African Americans > 60 (> 60); eGFR For Non-African Americans > 60 (> 60)
[2017-07-02] MEDS: predniSONE 20 MG TABLET PO SCH (08:25)
[2017-07-02] MEDS ORDERED: Chloraseptic Spray 177 ML BOTTLE MM PRN (08:57)
[2017-07-02] MEDS: Loratadine 10 MG TABLET PO SCH (11:52)
[2017-07-02] MEDS: Fluticasone Propionate Nasal 50 MCG/SPRAY BOTTLE NS SCH (11:52)
--- NOTE | 2017-07-02 17:51 | Internal Med Progress Note ---
Date of Encounter: 07/02/17 Time of Encounter: 09:00 - Assessment and plan (1) Acute bronchitis Current Visit: Yes Status: Acute Assessment and plan: Pt reports body aches and dry cough, as well as PND and sore throat, sinus pressure. Chest xray negative, but wheezing heard in all lung [place] and pt has dry, hacking cough. No fever or leukocytosis. She is requiring supplemental 02 at 2L. Continue DuoNeb, Zithromax IV, Flonase and Claritin, Chloraseptic spray for sore throat, and prednisone 40 mg by mouth daily. Chest X-Ray 07/01/17 19:02 IMPRESSION: No acute process. D/ / Osvaldo Ortiz MD / sOvaldo Ortiz MD Interpreting Provider: Osvaldo Ortiz MD Qualifiers: Bronchitis organism: unspecified organism Qualified Code(s): J20.9 - Acute bronchitis, unspecified (2) Hypoxia Current Visit: Yes Status: Acute Assessment and plan: Patient remains hypoxic without oxygen, room air sats around 90-91% after 2 to her labs and Solu-Medrol. Patient is requiring supplemental oxygen. She is a nonsmoker. Continue O2 at 2 L, titrate as needed to maintain sats greater than 92%. (3) DVT prophylaxis Current Visit: Yes Status: Acute Assessment and plan: Patient is ambulatory in the room. (4) Acute respiratory failure Current Visit: Yes Status: Acute Assessment and plan: Plan as above. Qualifiers: Respiratory failure complication: hypoxia Qualified Code(s): J96.01 - Acute respiratory failure with hypoxia - Time Spent With Patient less than 15 minutes - Subjective Interval history: Pt was seen and assessed at 0900. She is alert and awake. Reports that she has had cough, sinus pressure, and wheezing for 3-4 days prior to arrival. Tried OTC without relief. Wheezing remains and pt is amenable to staying over night for continued treatments and IV medications. Pt states that due to the holiday tomorrow, she wants to go home. She denies n/v/d, diaphoresis, abd pain. Reports sore throat, likely due to PND and sinus pressure. - Constitutional Vitals: Temp Pulse Resp BP Pulse Ox 98.6 F 85 20 125/77 97 07/02/17 15:47 07/02/17 15:47 07/02/17 16:18 07/02/17 15:47 07/02/17 16:18 General appearance: Present: A&O X 3, pleasant, no acute distress, answers questions appropriately - Head Head exam: Present: atraumatic, normal inspection, normocephalic - Eye Eye exam: Present: normal appearance, conjuntiva pink, sclera anicteric - Neck Neck exam general surgery: Present: normal inspection, supple, trachea midline. Absent: lymphadenopathy, tenderness - Respiratory Respiratory exam: Present: CTAB, wheezes. Absent: accessory muscle use, chest wall tenderness, decreased breath sounds, rales, rhonchi - Cardiovascular Cardiovascular exam: Present: RRR, +S1, +S2. Absent: diastolic murmur, gallop, rubs, systolic murmur - GI/Abdominal GI/Abdominal exam: Present: normal bowel sounds, soft, no peritoneal signs. Absent: distended, hepatomegaly, tenderness - Extremities Exam Extremities exam: Present: normal capillary refill, normal inspection, warm, radial pulses palpable and symmetrical. Absent: calf tenderness, cyanotic, pedal edema, tenderness - Neurological Exam Neurological exam: Present: alert, oriented X3, no focal deficits. Absent: facial droop, speech deficit - Skin Skin exam: Present: dry, intact, normal color, warm. Absent: rash Internal Medicine: Result - Labs CBC & Chem 7: 07/02/17 03:55 07/02/17 03:55 Labs: Short CBC 07/02/17 Range/Units 03:55 WBC 5.8 (4.3-11.1) K/mcL Hgb 12.2 (11.5-15.4) g/dL Hct 37.3 (35.3-44.9) % Plt Count 258 (140-400) K/mcL Neutrophils # 5.2 (1.6-8.9) K/mcL BMP 07/02/17 03:55 Sodium 139 Potassium 4.3 Chloride 107 Carbon Dioxide 25 BUN 18 Creatinine 0.88 Glucose 255 H Calcium 9.2 Consult Discharge Plan - Plan Referrals: NONE,PCP [Primary Care Provider] -
[2017-07-02] MEDS: Azithromycin 500 MG in D5% in Water 250 ML IVPB SCH (23:17)
[2017-07-03] MEDS: Ipratropium/Albuterol Neb 3 ML IH SCH ×3 (04:44→15:36)
[2017-07-03] MEDS: predniSONE 20 MG TABLET PO SCH (08:48)
[2017-07-03] MEDS: Loratadine 10 MG TABLET PO SCH (08:48)
[2017-07-03] MEDS: Fluticasone Propionate Nasal 50 MCG/SPRAY BOTTLE NS SCH (08:49)
[2017-07-03 15:54] VITALS: BP 113/49
--- NOTE | 2017-07-03 16:31 | Discharge Summary ---
Orders not resulted at time of discharge: Pending orders 07/02/17 04:00 Respiratory Infection Panel [[facility]] AM 0400 Date of Encounter: 07/03/17 Time of Encounter: 10:55 - Discharge Diagnosis (1) Acute bronchitis Priority: Primary Status: Acute Comments: Pt states that she feels better, is able to ambulate without dyspnea. Pt is ready to go home. 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 She is able to be weaned from supplemental 02. Qualifiers: Bronchitis organism: unspecified organism Qualified Code(s): J20.9 - Acute bronchitis, unspecified (2) Hypoxia Priority: Secondary Status: Acute Comments: Pt's room air sat around 92-93%. Resolved. Pt will most likely continue to improve over time and with continued treatment. (3) DVT prophylaxis Priority: Secondary Status: Acute Comments: Pt has been ambulatory. (4) Acute respiratory failure Priority: Secondary Status: Resolved Comments: Pt is maintaining sats on room air. Resolved. Qualifiers: Respiratory failure complication: hypoxia Qualified Code(s): J96.01 - Acute respiratory failure with hypoxia Hospital course: Ms. Cooper is a 61 year old female with no significant past medical history who presents to the emergency department with shortness of breath for 1-2 days. Patient reports subjective low-grade fevers, dry hacking cough, increasing shortness of breath. She denies any chest pain, nausea or vomiting. Patient has no history of COPD, emphysema, asthma. She is a nonsmoker. She was found to have wheezing bilaterally, improved wheezing and steroids, however she was not able to maintain her sats. She was admitted for further management. She was treated with prednisone, nebulizer treatments, I started Claritin and Flonase, as well as guaifenesin. Patient will be treated with Zithromax after discharge as well as prescriptions for Flonase, Claritin, prednisone taper. Patient will be sent home with a nebulizer due to faint remainder of wheezing and cough. Patient is 93% on room air. She is not need home oxygen. Vital labs are stable. She is appropriate for discharge. Discharge discussed with: family, nurse - Time Spent with Patient Total time spent providing and/or coordinating discharge services: Less than 30 minutes - Discharge Medications Prescriptions: Ipratropium/Albuterol Neb [Duoneb] 3 ml IH [id number] #24 inhsol Azithromycin [Zithromax] 250 mg PO Q24H #4 tablet Fluticasone Propionate Nasal [Flonase] 50 mcg NS DAILY #1 bottle Guaifenesin [Guaifenesin ER] 600 mg PO BID PRN #30 tab.er.12h PRN Reason: Cough Loratadine [Claritin] 10 mg PO DAILY #10 tablet predniSONE [PredniSONE] 10 mg PO DAILY #19 tablet Home Medications: Azithromycin [Zithromax] 250 mg PO Q24H #4 tablet 07/03/17 [Rx] Fluticasone Propionate Nasal [Flonase] 50 mcg NS DAILY #1 bottle 07/03/17 [Rx] Guaifenesin [Guaifenesin ER] 600 mg PO BID PRN #30 tab.er.12h 07/03/17 [Rx] Ipratropium/Albuterol Neb [Duoneb] 3 ml IH [id number] #24 inhsol 07/03/17 [Rx] Loratadine [Claritin] 10 mg PO DAILY #10 tablet 07/03/17 [Rx] predniSONE [PredniSONE] 10 mg PO DAILY #19 tablet 07/03/17 [Rx] Allergies/Adverse Reactions: 3 Allergy/AdvReac Type Severity Reaction Status Date / Time acetaminophen [From Percocet] Allergy Vomiting Verified 07/02/17 16:06 Oxycodone [From Percocet] Allergy Vomiting Verified 07/02/17 16:06 Date of admission: 07/01/17 22:23 Primary care physician: PCP NONE Discharging clinician: Zahra Martin Anticipated date of discharge: 07/03/17 - Constitutional Vitals: Temp Pulse Resp BP Pulse Ox 97.7 F 91 16 113/49 93 07/03/17 15:52 07/03/17 15:52 07/03/17 15:52 07/03/17 15:52 07/03/17 15:52 General appearance: Present: cooperative, A&O X 3, pleasant, no acute distress, answers questions appropriately - Head Head exam: Present: atraumatic, normal inspection, normocephalic - Eye Eye exam: Present: normal appearance, conjuntiva pink, sclera anicteric - Neck Neck exam general surgery: Present: supple, trachea midline. Absent: lymphadenopathy - Respiratory Respiratory exam: Present: decreased breath sounds, CTAB. Absent: accessory muscle use, chest wall tenderness, rales, rhonchi, wheezes - Cardiovascular Cardiovascular exam: Present: RRR, +S1, +S2. Absent: diastolic murmur, gallop, rubs, systolic murmur - GI/Abdominal GI/Abdominal exam: Present: normal bowel sounds, soft. Absent: distended, hepatomegaly, tenderness - Extremities Exam Extremities exam: Present: normal capillary refill, normal inspection, warm, radial pulses palpable and symmetrical. Absent: calf tenderness, cyanotic, pedal edema - Neurological Exam Neurological exam: Present: alert, oriented X3, no focal deficits. Absent: facial droop, speech deficit - Skin Skin exam: Present: dry, intact, normal color, warm. Absent: rash - Patient Status Disposition: Home, Self-Care Condition: Good Functional capacity at discharge: independent ambulation Overall status at discharge: patient is back to baseline - Discharge Instructions Follow Up With: NONE,PCP [Primary Care Provider] - Additional Instructions: Take your medications as directed. Use your nebulizer every 6 hours as needed for wheezing. Please follow up with your PCP in the next 3 days. Do not return to work until your follow up with PCP. Continue any other home medications and return to your normal diet. REturn to the ER immediately if your symptoms return or worsen or if you have any other problems or concerns. - Diet and Activity Activity: increase activity as tolerated Diet: advance to your usual diet
--- NOTE | 2017-07-04 12:24 | Electrocardiograph Report ---
[address] [place], [place] [address] Test Date: 2017-07-01 Pat Name: Madisyn Cooper Department: 104 Room: 3B Gender: F [employer] Helper: QUINN : [id number] Requested By: Panchito Bailey Order Number: [id number] Reading MD: Richard Hart Measurements Intervals [place] Rate: 103 P: 31 IN: 150 QRS: -3 QRSD: 84 T: -29 QT: 317 QTc: 377 Interpretive Statements SINUS TACHYCARDIA MINIMAL VOLTAGE CRITERIA FOR LVH Electronically Signed On 07-04-2017 12:23:02 EDT by Richard Hart
== END 2017-07-03 18:43 | disposition home or self-care (01) ==
LOC: 3BNU 18:53 → EMEROO 18:53 → 3BNU 22:58
PROVIDERS: ADMIT Internal Medicine; ATTEND Registered Nurse